=== PATIENT | female | born 1980 | race Caucasian/White ===

== ENCOUNTER 2016-06-09 13:50 | Emergency (ER) | payer SELFPAY ==
[2016-06-09 14:15] VITALS: BMI 19.1
[2016-06-09 14:58] LABS: AMORPHOUS 2+; LEUKOCYTES/URINE NEG (NEGATIVE); NITRITE/URINE NEG (NEGATIVE); URINE OCCULT BLOOD NEG (NEG/TRACE); WBC/URINE 0-2 (0-5)
--- NOTE | 2016-06-09 15:32 | EDPRACDOC ---
- General Information Chief Complaint: Abdominal Pain Stated Complaint: COUGH; DIFFICULTY BREATHING Time Seen by Provider: 06/09/16 15:05 Information Source: Patient Home Medications: Home Medications Benzonatate [Tessalon Perle] 200 mg PO TID PRN #14 capsule 06/09/16 Hydrocodone Bit/Acetaminophen [Hydrocodon-Acetaminophen 5-325] 1 - 2 tab PO Q6H PRN #7 tab 06/09/16 Ibuprofen Tablet [Motrin] 600 mg PO Q6H #20 tablet 06/09/16 Allergies/Adverse Reactions: Allergies Allergy/AdvReac Type Severity Reaction Status Date / Time ketorolac tromethamine Allergy Severe Nausea only Verified 04/15/16 16:41 [From Toradol] coconut oil Allergy Hives* Verified 04/15/16 16:41 latex Allergy Rash-Genera Verified 04/15/16 16:41 lized walnuts Allergy Hives* Uncoded 04/15/16 16:41 - History of Present Illness Onset: 8 HOURS Relevant History of: Reports: None Cough: Reports: Non-productive Rhinorrhea: Reports: Clear Fever Severity/Quality: Reports: subjective Ear Symptoms: Reports: None Recently treated infections: Denies: Otitis media, Pneumonia, URI Associated Signs & Symptoms: Reports: Cough (MAKES AURY UPPER QUAD ABD PAIN), Fever (SUBJECTIVE), Headache (MILD), Nasal Symptoms, Sore Throat (SCRATCHY), Nausea, Myalgia (HEAD TO TOE). Denies: Vomiting, Diarrhea, Rash, Pain with head movement, AMS ED Past Medical History - History Reviewed Yes Nurses notes reviewed and agree except as marked - Patient Medical History GI/ History: Reports: PMH GI Yes/No Other Psychological History: Reports: [facility] Psychological hx Yes/No Other. Denies: Depression Additional Past Medical History: RECURRENT BACK PAIN Surgical History: Denies: Hysterectomy Additional Past Surgical History: BTL - Social Medical History Smoking Status: Heavy tobacco smoker (5 or more cigarettes/day or daily pipe/ cigar) ETOH: None Substance Abuse: None Lives With: Parents EDM Review of Systems - Review of Systems ROS Negative Except as Marked: Yes All systems reviewed and were negative except as marked - Physical Exam Constitutional: Alert (Awake), No apparent distress Oriented to: Time, Person, Place Last recorded Vital Signs: Last Vital Signs Temp 98.4 F 06/09/16 14:12 Pulse 89 06/09/16 14:12 Resp 20 06/09/16 14:12 BP 101/48 L 06/09/16 14:12 Pulse Ox 100 06/09/16 14:12 Oxygen Pulse Oxygen Saturation 100 O2 Device Oxygen Flow Rate Fraction of Inspired Oxygen ( FIO2) - HEENT Head: Normal ( normocephalic) Eye Exam: Normal (PERRL, EOMI, Sclera white) Oropharynx: Normal (Pharynx:Moist without exudate,Gums-no swelling) Nose: No Symptoms Reported (septum midline) Neck: Normal (FROM, trachea at midline) - Respiratory/Cardiovascular Respiratory: Normal - CTA (BBS clear to auscultation without adventitious sounds ) Cardiovascular: Normal (RRR without murmur, gallop or rub) - GI Auscultation: Normal (NABS) Palpation: Normal (Soft,No rebound or guarding, non distended) Tenderness: Non tender. negative: RUQ, RLQ, Periumbilical Bender's Sign: Negative - Musculoskeletal Back: Normal (Non-Tender) Extremities: Normal (Normal tone, Pulses 2+ No cyanosis or edema, FROM) - Integumentary Skin: Normal, Warm, Dry Lymphatics: Normal (no adenopathy) - Neurologic Memory Impaired: Normal Motor Function: Normal (Normal tone, Pulses 2+ No cyanosis or edema, FROM) Cranial Nerve: Normal (CN II-X11 intact sensation, strength 5/5) Cerebellar: Normal Mood Description: Normal Perception: Normal - Results Urine Color Yellow 06/09/16 14:45 Urine Clarity Cldy 06/09/16 14:45 Urine pH 8.0 (5.0-8.0) 06/09/16 14:45 Ur Specific [place] 1.015 (1.003-1.035) 06/09/16 14:45 Urine Protein Neg (NEG/TRACE) 06/09/16 14:45 Urine Glucose (UA) Neg (NEGATIVE) 06/09/16 14:45 Urine Ketones Neg (NEGATIVE) 06/09/16 14:45 Urine Occult Blood Neg (NEG/TRACE) 06/09/16 14:45 Urine Nitrite Neg (NEGATIVE) 06/09/16 14:45 Urine Bilirubin Neg (NEGATIVE) 06/09/16 14:45 Urine Urobilinogen <2.0 MG/DL (0-1) 06/09/16 14:45 Ur Leukocyte Esterase Neg (NEGATIVE) 06/09/16 14:45 Urine WBC 0-2 (0-5) 06/09/16 14:45 Ur Epithelial Cells 1+ 06/09/16 14:45 Amorphous Sediment 2+ 06/09/16 14:45 Urine Bacteria Few (NEG/FEW) 06/09/16 14:45 Urine Mucus Occ (NEG/OCC) 06/09/16 14:45 Lab Results 06/09/16 14:45 Urine Color Yellow Urine Clarity Cldy Urine pH 8.0 Ur Specific [place] 1.015 Urine Protein Neg Urine Glucose (UA) Neg Urine Ketones Neg Urine Occult Blood Neg Urine Nitrite Neg Urine Bilirubin Neg Urine Urobilinogen <2.0 Ur Leukocyte Esterase Neg Urine WBC 0-2 Ur Epithelial Cells 1+ Amorphous Sediment 2+ Urine Bacteria Few Urine Mucus Occ - Departure Disposition: Home Condition: Stable Final Diagnosis: Influenza-like illness Instructions: Influenza (ED) Education/Counseling Given To: Patient, Family Member Education/Counseling Given Regarding: Diagnosis, Treatment, Prognosis Referrals: None,No Provider [Primary Care Provider] - One Week Prescriptions: New Benzonatate [Tessalon Perle] 200 mg PO TID PRN #14 capsule PRN Reason: Cough Hydrocodone Bit/Acetaminophen [Hydrocodon-Acetaminophen 5-325] 1 - 2 tab PO Q6H PRN #7 tab PRN Reason: Pain Ibuprofen Tablet [Motrin] 600 mg PO Q6H #20 tablet
[2016-06-09 15:50] VITALS: BP 102/53; PULSE 92; TEMP 98.8
== END 2016-06-09 15:49 | disposition home or self-care (01) ==
LOC: ED 13:50
DX: J11.1 Influenza due to unidentified influenza virus with other respiratory manifestations (principal)
CPT/HCPCS: 81001; 99283